=== PATIENT | female | born 1970 | race Caucasian/White ===

== ENCOUNTER 2019-04-05 12:49 | Emergency (ER) | payer BC ==
[~2019-04-05] VITALS: Ht 165.1 cm; Wt 91.2 kg
[2019-04-05 12:50] VITALS: BP_SYST 117
--- NOTE | 2019-04-05 12:50 | NUR ---
BROUGHT BACK TO BED #8 AND TRIAGED. REPORT GIVEN TO FROILAN
--- NOTE | 2019-04-05 13:22 | NUR ---
Patient arrived via POV, AAOx4, and ambulatory while holding on to spouses arm. Patient c/c of dizziness. Patient states onset was 2 days ago. She was at work when it happened and she noticed she had blood in the sclera medial to left eye. Patient states dizziness is like floating sensation where she feels like she is going to lose her footing. She has had this intermittently over the past 2 weeks. Patient states there is nothing that provokes onset, and nothing that has relieved it. Patient notes hearing "like bubbles when you take a bath and they get stuck in my hair." Patient states she is feeling nauseated, and has no vomiting, diarrhea, abdominal pain, chest pain present. Will continue to follow up and monitor.
--- NOTE | 2019-04-05 13:35 | NUR ---
ER at bedside examining patient.
[2019-04-05] MEDS ORDERED: METOCLOPRAMIDE HCL 10 MG/2 ML VIAL IVP ONE (13:45)
[2019-04-05] MEDS ORDERED: MECLIZINE HCL 25 MG TABLET (ANITVERT) PO ONE (13:45)
[2019-04-05 14:15] LABS: BASOPHILS % (AUTO) 0.5 % (0.0-2.0); EOSINOPHILS # (AUTO) 0.1 K/uL (0.0-0.4); EOSINOPHILS % (AUTO) 1.6 % (0.0-4.0); HEMATOCRIT 40.6 % (36-48); HEMOGLOBIN 13.7 g/dL (12.0-16.0); LYMPHOCYTES # (AUTO) 1.3 K/uL (1.0-5.5); LYMPHOCYTES % (AUTO) 23.9 % (20.5-51.5); MEAN CORPUSCULAR HEMOGLOBIN 32 pg (27-31); MEAN CORPUSCULAR HGB CONC 34 % (32-36); MEAN CORPUSCULAR VOLUME 94 fL (79.0-98.0); MONOCYTES # (AUTO) 0.4 K/uL (0.0-1.0); MONOCYTES % (AUTO) 8.1 % (1.7-9.3); NEUTROPHILS # (AUTO) 3.5 K/uL (1.8-7.7); NEUTROPHILS % (AUTO) 65.9 % (40.0-70.0); PLATELET COUNT (AUTO) 261 K/uL (130-430); RED BLOOD CELL COUNT(AUTO) 4.32 MIL/uL (4.2-6.2); RED CELL DISTRIBUTION WIDTH 13.3 % (9.0-15.0); WHITE BLOOD COUNT (AUTO) 5.3 K/uL (4.8-10.8)
[2019-04-05 14:38] LABS: CALCIUM 8.4 mg/dL (8.4-11.0); CREATININE 0.87 mg/dL (0.55-1.30); POTASSIUM 3.9 mmol/L (3.5-5.1)
[2019-04-05 14:39] LABS: PROTHROMBIN TIME 10.3 SECS (9.5-12.5)
[2019-04-05 14:50] LABS: ALBUMIN 3.4 g/dL (3.4-4.8); TOTAL BILIRUBIN 0.3 mg/dL (0.0-1.0)
[2019-04-05 15:29] VITALS: BP_SYST 105
--- NOTE | 2019-04-05 15:29 | NUR ---
Patient given written and verbal discharge instructions and verbalizes understanding. ER MD discussed with patient the results and treatment provided. Patient in stable condition. ID arm band removed. IV catheter removed intact and dressing applied, no active bleeding. Rx of Meclizine Hydrochloride; Aspirin given. Patient educated on pain management and to follow up with PMD. Pain Scale 4/10, headache. Opportunity for questions provided and answered. Medication side effect fact sheet provided.
== END 2019-04-05 15:29 | disposition home or self-care (01) ==
LOC: SED 12:49
DX: R42 Dizziness and giddiness (principal); R51 Headache
CPT/HCPCS: 36415; 70450; 71045; 80053; 83880; 84484; 85025; 85610; 85730; 96374; 99284; J2765; J8597; 93005